=== PATIENT | female | born 1970 | race Two or more races ===

== ENCOUNTER 2024-11-04 17:02 | Emergency (ER) | payer SELFPAY ==
--- NOTE | 2024-11-04 17:56 | PC.NURSE ---
Pt called x3 to triage room. No answer & not in waiting room
== END 2024-11-04 17:05 | disposition left against medical advice (07) ==
DX: Z53.21 Procedure and treatment not carried out due to patient leaving prior to being seen by health care provider (principal)
CPT/HCPCS: 99199